=== PATIENT | male | born 1925 | race Caucasian/White ===

== ENCOUNTER 2016-08-05 09:36 | Inpatient (IN) | payer MEDICARE, BC ==
[2016-08-05] MEDS ORDERED: SODIUM CHLORIDE 0.9% 1,000 ML IV STA (10:04)
[2016-08-05] MEDS ORDERED: RX INFO: IV CONTRAST WAS GIVEN 1 EACH MISC MISCELLANE PRN (10:05)
--- NOTE | 2016-08-05 10:12 | ED ---
General Adult HPI - General Chief complaint: Fall Stated complaint: Fall-rib pain Time Seen by Provider: 08/05/16 09:53 Source: patient, EMS, RN notes reviewed Mode of arrival: EMS Limitations: no limitations - History of Present Illness Initial comments: Patient is a pleasant 89-year-old male presenting to the emergency department after a syncopal episode yesterday. Patient complains of right-sided flank discomfort. Patient states he was working in the yard and he fell. Patient does not remember the fall. Patient believes she may have been unresponsive for a couple of minutes. Patient was able to get up on his own. Patient has been doing fine since yesterday except for discomfort in the right flank region. Discomfort is mostly there with movement. Discomfort is mild at rest. No dyspnea. No chest pain. No weakness or confusion. Patient did have an episode of speech problems several weeks ago and his doctor thought he could be having some occasional TIAs. Patient has known severe carotid disease and has been determined not to be a candidate at this time for surgery. - Related Data Home Medications Medication Instructions Recorded Confirmed ALPRAZolam [Xanax] 0.25 mg PO Q8HR PRN 09/03/15 08/05/16 Ascorbic Acid [Vitamin C] 500 mg PO DAILY 09/03/15 08/05/16 Cholecalciferol (Vitamin D3) 2,000 unit PO DAILY 09/03/15 08/05/16 [Vitamin D3] Pravastatin Sodium [Pravachol] 40 mg PO HS 09/03/15 08/05/16 Aspirin 162 mg PO HS 08/05/16 08/05/16 Digoxin [Lanoxin] 125 mcg PO DAILY 08/05/16 08/05/16 Ezetimibe [Zetia] 10 mg PO HS 08/05/16 08/05/16 Fluticasone Propionate 2 spray EA NOSTRIL DAILY PRN 08/05/16 08/05/16 Omeprazole [PriLOSEC] 20 mg PO HS PRN 08/05/16 08/05/16 Saw [place] 500 mg PO DAILY 08/05/16 08/05/16 Simethicone [Gas-X] 125 mg PO DAILY PRN 08/05/16 08/05/16 Tamsulosin [Flomax] 0.8 mg PO HS 08/05/16 08/05/16 Allergies Allergy/AdvReac Type Severity Reaction Status Date / Time cephalexin monohydrate Allergy Rash/Hives Verified 08/05/16 10:09 [From Keflex] erythromycin base Allergy Rash/Hives Verified 08/05/16 10:09 Review of Systems ROS Statement: Those systems with pertinent positive or pertinent negative responses have been documented in the HPI. ROS Other: All systems not noted in ROS Statement are negative. Constitutional: Denies: fever Eyes: Denies: eye pain ENT: Denies: ear pain Respiratory: Denies: cough Cardiovascular: Denies: chest pain Endocrine: Denies: fatigue Gastrointestinal: Reports: abdominal pain (Right flank) Genitourinary: Denies: dysuria Musculoskeletal: Denies: back pain, arthralgia Skin: Denies: rash Neurological: Denies: headache, weakness, confusion Past Medical History Past Medical History: Cancer, Hyperlipidemia, Syncope Additional Past Medical History / Comment(s): Prostate cancer History of Any Multi-Drug Resistant Organisms: None Reported Past Surgical History: Hernia Repair Past Psychological History: No Psychological Hx Reported Smoking Status: Current every day smoker Past Alcohol Use History: None Reported Past Drug Use History: None Reported General Exam Limitations: no limitations General appearance: alert, in no apparent distress Head exam: Present: atraumatic Eye exam: Present: normal appearance, PERRL, EOMI. Absent: nystagmus ENT exam: Present: normal oropharynx Neck exam: Present: normal inspection. Absent: tenderness, meningismus Respiratory exam: Present: normal lung sounds bilaterally, other (Right posterior and lateral rib tenderness, lower.) Cardiovascular Exam: Present: regular rate, normal rhythm Expanded Peripheral pulses: 2+: Radial (R), Radial (L), Posterior Tibialis (R), Posterior Tibialis (L) GI/Abdominal exam: Present: soft, tenderness (Mild tenderness right upper abdomen just below the ribs). Absent: distended Extremities exam: Present: normal inspection, full ROM. Absent: tenderness Back exam: Present: tenderness (Mild to moderate tenderness right lower ribs and lateral ribs.) Neurological exam: Present: alert, CN II-XII intact. Absent: motor sensory deficit Expanded Speech: Present: fluid speech Sensory exam: Upper Extremity Light Touch: Normal, Lower Extremity Light Touch: Normal Motor strength exam: RUE: 5, LUE: 5, RLE: 5, LLE: 5 Psychiatric exam: Present: normal affect, normal mood Skin exam: Present: normal color Course Vital Signs 08/05/16 08/05/16 08/05/16 09:37 10:43 11:00 Temperature 97.3 F L Pulse Rate 61 54 L 100 Respiratory 18 Rate Blood Pressure 146/73 143/68 142/70 O2 Sat by Pulse 95 Oximetry 08/05/16 12:00 Temperature Pulse Rate 72 Respiratory 18 Rate Blood Pressure 118/64 O2 Sat by Pulse 92 L Oximetry EKG Findings - EKG Comments: EKG Findings:: Sinus rate cardia 57. SC 186. QRS 76. QT 392. QTC 381. Normal axis. Normal QRS. Nonspecific T waves. Medical Decision Making - Medical Decision Making Patient reevaluated. Patient and family updated. Case discussed with Dr. Sanchez, who will admit for Dr. Garcia. - Lab Data Result diagrams: 08/05/16 09:54 08/05/16 09:54 Lab Results 08/05/16 08/05/16 08/05/16 Range/Units 09:54 09:54 09:54 WBC 6.1 (3.8-10.6) k/uL RBC 4.76 (4.30-5.90) m/uL Hgb 13.6 (13.0-17.5) gm/dL Hct 41.1 (39.0-53.0) % MCV 86.3 (80.0-100.0) fL MCH 28.5 (25.0-35.0) pg MCHC 33.0 (31.0-37.0) g/dL RDW 14.2 (11.5-15.5) % Plt Count 236 (150-450) k/uL Neutrophils % 69 % Lymphocytes % 20 % Monocytes % 7 % Eosinophils % 2 % Basophils % 0 % Neutrophils # 4.2 (1.3-7.7) k/uL Lymphocytes # 1.2 (1.0-4.8) k/uL Monocytes # 0.4 (0-1.0) k/uL Eosinophils # 0.1 (0-0.7) k/uL Basophils # 0.0 (0-0.2) k/uL PT (9.0-12.0) sec INR (<1.1) APTT (22.0-30.0) sec Sodium 138 (137-145) mmol/L Potassium 4.9 (3.5-5.1) mmol/L Chloride 101 (98-107) mmol/L Carbon Dioxide 26 (22-30) mmol/L Anion Gap 11 mmol/L BUN 14 (9-20) mg/dL Creatinine 0.62 L (0.66-1.25) mg/dL Est GFR (MDRD) Af Amer >60 (>60 ml/min/1.73 sqM) Est GFR (MDRD) Non-Af >60 (>60 ml/min/1.73 sqM) Glucose 101 H (74-99) mg/dL Calcium 9.6 (8.4-10.2) mg/dL Total Bilirubin 1.2 (0.2-1.3) mg/dL AST 29 (17-59) U/L ALT 25 (21-72) U/L Alkaline Phosphatase 102 (38-126) U/L Total Creatine Kinase 44 L (55-170) U/L CK-MB (CK-2) 0.7 (0.0-2.4) ng/mL CK-MB (CK-2) Rel Index 1.6 Troponin I <0.012 (0.000-0.034) ng/mL Total Protein 7.8 (6.3-8.2) g/dL Albumin 4.4 (3.5-5.0) g/dL Urine Color Urine Appearance (Clear) Urine pH (5.0-8.0) Ur Specific [employer] (1.001-1.035) Urine Protein (Negative) Urine Glucose (UA) (Negative) Urine Ketones (Negative) Urine Blood (Negative) Urine Nitrite (Negative) Urine Bilirubin (Negative) Urine Urobilinogen (<2.0) mg/dL Ur Leukocyte Esterase (Negative) Urine RBC (0-5) /hpf Urine WBC (0-5) /hpf Urine Bacteria (None) /hpf Urine Yeast (Budding) (None) /hpf 08/05/16 08/05/16 Range/Units 09:54 10:45 WBC (3.8-10.6) k/uL RBC (4.30-5.90) m/uL Hgb (13.0-17.5) gm/dL Hct (39.0-53.0) % MCV (80.0-100.0) fL MCH (25.0-35.0) pg MCHC (31.0-37.0) g/dL RDW (11.5-15.5) % Plt Count (150-450) k/uL Neutrophils % % Lymphocytes % % Monocytes % % Eosinophils % % Basophils % % Neutrophils # (1.3-7.7) k/uL Lymphocytes # (1.0-4.8) k/uL Monocytes # (0-1.0) k/uL Eosinophils # (0-0.7) k/uL Basophils # (0-0.2) k/uL PT 10.1 (9.0-12.0) sec INR 1.0 (<1.1) APTT 23.3 (22.0-30.0) sec Sodium (137-145) mmol/L Potassium (3.5-5.1) mmol/L Chloride (98-107) mmol/L Carbon Dioxide (22-30) mmol/L Anion Gap mmol/L BUN (9-20) mg/dL Creatinine (0.66-1.25) mg/dL Est GFR (MDRD) Af Amer (>60 ml/min/1.73 sqM) Est GFR (MDRD) Non-Af (>60 ml/min/1.73 sqM) Glucose (74-99) mg/dL Calcium (8.4-10.2) mg/dL Total Bilirubin (0.2-1.3) mg/dL AST (17-59) U/L ALT (21-72) U/L Alkaline Phosphatase (38-126) U/L Total Creatine Kinase (55-170) U/L CK-MB (CK-2) (0.0-2.4) ng/mL CK-MB (CK-2) Rel Index Troponin I (0.000-0.034) ng/mL Total Protein (6.3-8.2) g/dL Albumin (3.5-5.0) g/dL Urine Color Light Yellow Urine Appearance Cloudy (Clear) Urine pH 7.0 (5.0-8.0) Ur Specific [employer] 1.006 (1.001-1.035) Urine Protein Negative (Negative) Urine Glucose (UA) Negative (Negative) Urine Ketones Negative (Negative) Urine Blood Negative (Negative) Urine Nitrite Negative (Negative) Urine Bilirubin Negative (Negative) Urine Urobilinogen <2.0 (<2.0) mg/dL Ur Leukocyte Esterase Large H (Negative) Urine RBC 1 (0-5) /hpf Urine WBC 169 H (0-5) /hpf Urine Bacteria Rare H (None) /hpf Urine Yeast (Budding) Few H (None) /hpf - Radiology Data Radiology results: report reviewed (Computed tomography scan of the brain reveals no acute process. Computed tomography scan of the chest, abdomen, and pelvis: Distended cecum, nonobstructive. Ileus. 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 Vertebral compression deformities, likely chronic.) Disposition Clinical Impression: Syncope, Urinary tract infection Disposition: ADMITTED IP TO THIS HOSP Referrals: Eileen Garcia DO [Primary Care Provider] - 1-2 days
[2016-08-05 10:16] LABS: Basophils % (A) 0 %; CH 28.6; CHCM 33.3; Eosinophils # (A) 0.1 k/uL (0-0.7); Eosinophils % (A) 2 %; HCT 41.1 % (39.0-53.0); HDW 2.35; HGB 13.6 gm/dL (13.0-17.5); Luc # (Auto) 0.13; Luc % (Auto) 2; Lymphocytes # (A) 1.2 k/uL (1.0-4.8); Lymphocytes % (A) 20 %; MCH 28.5 pg (25.0-35.0); MCV 86.3 fL (80.0-100.0); Mean Platelet Volume 7.5; Monocytes # (A) 0.4 k/uL (0-1.0); Monocytes % (A) 7 %; Neutrophils # (A) 4.2 k/uL (1.3-7.7); Neutrophils % (A) 69 %; RBC 4.76 m/uL (4.30-5.90); RDW 14.2 % (11.5-15.5); WBC 6.1 k/uL (3.8-10.6); WBC (Perox) 5.83
[2016-08-05 10:25] LABS: Partial Thromboplastin Time 23.3 sec (22.0-30.0); Prothrombin Time 10.1 sec (9.0-12.0)
[2016-08-05 10:30] LABS: ALT 25 U/L (21-72); AST 29 U/L (17-59); Alkaline Phosphatase 102 U/L (38-126); Anion Gap 11 mmol/L; Blood Urea Nitrogen 14 mg/dL (9-20); Calcium 9.6 mg/dL (8.4-10.2); Carbon Dioxide 26 mmol/L (22-30); Chloride 101 mmol/L (98-107); Glucose 101 mg/dL (74-99); Non-African American GFR(MDRD) >60 (>60 ml/min/1.73 sqM); Potassium 4.9 mmol/L (3.5-5.1); Sodium 138 mmol/L (137-145); Total Bilirubin 1.2 mg/dL (0.2-1.3); Total Protein 7.8 g/dL (6.3-8.2)
[2016-08-05 10:36] LABS: Creatine Kinase 44 U/L (55-170)
[2016-08-05 10:50] LABS: Creatine Kinase MB 0.7 ng/mL (0.0-2.4); Troponin I <0.012 ng/mL (0.000-0.034)
[2016-08-05 11:02] LABS: Appearance,Urine Cloudy (Clear); Bacteria,Urine Rare /hpf; Bilirubin,Urine Negative (Negative); Glucose,Urine (UA) Negative (Negative); Ketones,Urine Negative (Negative); Leukocyte Esterase,Urine Large (Negative); Nitrite,Urine Negative (Negative); Particle Count 5897; Protein,Urine Negative (Negative); RBC,Urine 1 /hpf (0-5); Specific Gravity,Urine 1.006 (1.001-1.035); UA Billing (MACRO vs. MICRO) MICRO; Urobilinogen,Urine <2.0 mg/dL (<2.0); WBC,Urine 169 /hpf (0-5)
--- NOTE | 2016-08-05 11:46 | CT ---
EXAMINATION TYPE: CT brain wo con DATE OF EXAM: 08/05/2016 11:37 AM COMPARISON: 09/03/2015 HISTORY: 89-year-old male syncope TECHNIQUE: Examination was done in axial plane without intravenous contrast. Coronal and sagittal r econstructions performed. CT DLP: 2264.20 mGycm Automated exposure control for dose reduction was used. FINDINGS: There is no evidence of acute intracranial hemorrhage, acute ischemic changes, mass, mass-effect, or extra-axial fluid collection. There is no effacement of cerebral sulci or basal subarachnoid cister ns. There is no midline shift. Hudson-white matter distinction is preserved. Moderate generalized supratentorial volume loss with moderate patchy and confluent white matter hypod ensities. There is secondary mild ventricular enlargement. Leftward nasal septal deviation. Globes appear symmetric and intact. Mastoid air cells and paranasal sinuses well pneumatized. IMPRESSION: No acute intracranial abnormality seen. Stable moderate atrophy and confluent changes of chronic smal l vessel ischemic disease.
--- NOTE | 2016-08-05 12:26 | CT ---
EXAMINATION TYPE: CT ChestAbdPelvis w con DATE OF EXAM: 08/05/2016 11:38 AM COMPARISON: NONE HISTORY: 89-year-old male with fall and right side abdominal pain TECHNIQUE: Contiguous axial scanning of the chest, abdomen, and pelvis performed with IV Contrast, pa tient injected with 100 mL of Omnipaque 300. Delayed images through the kidneys were obtained. Manzanares l/sagittal reconstructions performed. CT DLP: 509.5 mGycm Automated exposure control for dose reduction was used. FINDINGS: CHEST: 9 mm hypodense nodule lower pole left thyroid gland. Heart is normal size with trace anterior basilar pericardial fluid. Extensive coronary vessel calcifi cations are present in remarkable for coronary artery disease. Aorta is normal caliber with conventional arch vessel branching anatomy. Large caliber to the main right and left pulmonary arteries at 2.7 cm each suggesting underlying pulm onary arterial hypertension. Scattered nonenlarged mediastinal lymph nodes. Largest measures 1 cm in the precarinal region and is borderline in size. Interstitial scarring at the subpleural regions of the lower lungs. Some scattered calcified granulom as. Moderate centrilobular emphysema. No consolidation, pneumothorax, or pleural effusion. Scattered calcified pleural plaques compatible with prior asbestos exposure. ABDOMEN: Small hiatal hernia. No focal liver lesion. No biliary ductal dilatation. Gallbladder, adrenal glands, left kidney, spleen with hilar splenule, and pancreas show no gross abno rmality. A couple subcentimeter hypodensities right kidney too small for accurate CT characterization , likely cysts. There appears to be a 1 cm retained needle embedded into the left upper quadrant anterior abdominal w all musculature. Second needle is present along the midline anterior abdominal wall. Tiny 1.3 cm epigastric ventral abdominal wall hernia containing omental fat. Moderate overall stool burden without pericolonic inflammatory change. Prominent fluid-filled small b owel loops especially in the left abdomen. The cecum is distended to the upper limits of normal at 9 cm, coronal image 20. Normal appendix visua lized No dilated small bowel, free fluid, or free air. 3.1 cm fusiform aneurysm of the infrarenal abdominal aorta. Borderline ectasia of the common iliac ar teries at 1.5 cm each. No mesenteric or retroperitoneal lymphadenopathy seen. Pelvis: Prominent air located within the rectum no abnormal fluid collection seen in the pelvis. Bones: Degenerative changes of the hips and scattered throughout the spine. There is vertebral compression deformity of L3 which has a chronic appearance and 40% overall height loss. Mild compression deformities of both T12 and L1 also have a relatively chronic appearance without any paravertebral soft tissue abnormality; 15% overall height loss. T7 vertebral compression deformity also shows no paravertebral soft tissue abnormality with overall 5 0% anterior height loss. There appears to be chronic fracture deformity at the distal left clavicle with heterotopic ossificat ion across the coracoclavicular ligaments. Multiple old healed left-sided rib fracture deformities. IMPRESSION: 1. THE CECUM IS DISTENDED TO THE UPPER LIMITS OF NORMAL AT 9 CM. FOLLOW-UP SHOULD BE CONSIDERED. NO V OLVULUS OR OBSTRUCTIVE CHANGES. 2. PROMINENT FLUID-FILLED SMALL BOWEL LOOPS IN THE MID AND LEFT ABDOMEN COULD REPRESENT ENTERITIS OR GENERALIZED ILEUS. 3. COPD WITH PULMONARY ARTERIAL HYPERTENSION. ASBESTOS RELATED PLEURAL DISEASE. 4. A COUPLE 1 CM NEEDLE FRAGMENTS EMBEDDED IN THE ANTERIOR ABDOMINAL WALL. SMALL EPIGASTRIC VENTRAL A BDOMINAL WALL HERNIA CONTAINING FAT. 3. A 3.1 CM AAA. 4. VERTEBRAL COMPRESSION DEFORMITIES OF T7, T12, L1, AND L3 ALL SUSPECTED TO BE CHRONIC GIVEN THE LAC K OF PARAVERTEBRAL SWELLING. CLINICAL CORRELATION RECOMMENDED. ADDITIONAL OLD HEALED LEFT-SIDED RIB F RACTURE DEFORMITIES.
[2016-08-05] MEDS ORDERED: NALOXONE 0.4 MG/ML 1 ML VIAL IV PRN (13:35)
[2016-08-05] MEDS ORDERED: LEVOFLOXACIN 750MG-D5W PMX 750 MG in DEXTROSE/WATER 1 150ML.BAG IVPB STA (13:38)
--- NOTE | 2016-08-05 14:32 | US ---
EXAMINATION TYPE: US carotid duplex BILAT DATE OF EXAM: 08/05/2016 2:10 PM COMPARISON: NONE CLINICAL HISTORY: syncope. EXAM MEASUREMENTS: RIGHT: Peak Systolic Velocity (PSV) cm/sec ----- Right CCA: 93.0 ----- Right ICA: 93.2 ----- Right ECA: 113.5 ICA/CCA ratio: 1.0 RIGHT: End Diastole cm/sec ----- Right CCA: 22.2 ----- Right ICA: 26.0 ----- Right ECA: 12.4 LEFT: Peak Systolic Velocity (PSV) cm/sec ----- Left CCA: 118.2 ----- Left ICA: 94.2 ----- Left ECA: 74.7 ICA/CCA ratio: 0.8 LEFT: End Diastole cm/sec ----- Left CCA: 22.2 ----- Left ICA: 26.0 ----- Left ECA: 6.6 VERTEBRALS (direction of flow): Right Vertebral: Antegrade Left Vertebral: Antegrade No significant stenosis seen, bilateral shadowing plaque at bulbs, no elevated velocities. Plaque is present within the right carotid bifurcation. Intimal thickening is present on the right. T here is a larger smooth plaque within the right carotid bulb. Intimal thickening is present on the le ft. IMPRESSION: Intimal thickening and plaquing present on the right with mild intimal thickening of the left. No significant flow-limiting stenosis is evident. Criteria for Assigning % of Stenosis / Diameter reduction (Estimation based on the indirect measurements of the internal carotid artery velocities (ICA PSV). 1. Normal (no stenosis)=ICA PSV < 125 cm/s: ratio < 2.0: ICA EDV<40 cm/s. 2. Less than 50% stenosis=ICA PSV < 125 cm/s: ratio < 2.0: ICA EDV<40 cm/s. 3. 50 to 69% stenosis=ICA PSV of 125 to 230 cm/s: ration 2.0 ? 4.0: ICA EDV 40-100 cm/s. 4. Greater than 70% stenosis to near occlusion= ICA PSV > 230 cm/s: ratio > 4.0: ICA EDV > 100 cm/s. 5. Near occlusion= ICA PSV velocities may be low or undetectable: variable ratio and ICA EDV. 6. Total occlusion=unable to detect flow.
[2016-08-05] MEDS: SODIUM CHLORIDE 0.9% 1,000 ML IV SCH (15:12)
[2016-08-05] MEDS ORDERED: SIMETHICONE 80 MG CHEWABLE PO PRN (15:45)
[2016-08-05] MEDS ORDERED: PANTOPRAZOLE 40 MG TABLET PO PRN (15:45)
[2016-08-05] MEDS: HYDROcodone/APAP 5-325MG 1 EACH TAB PO PRN (16:35)
[2016-08-05] MEDS: LIDOCAINE 5% PATCH TOPICAL SCH (16:55)
[2016-08-05] MEDS ORDERED: BISACODYL 10 MG SUPP RECTAL STA (18:55)
[2016-08-05] MEDS: DOCUSATE ORAL SOLN 100 MG/10 ML CUP PO SCH (19:31)
[2016-08-05] MEDS: EZETIMIBE 10 MG TAB PO SCH (20:43)
[2016-08-05] MEDS: ASPIRIN 81 MG CHEW PO SCH (20:43)
[2016-08-05] MEDS: SENNOSIDES 8.6 MG TAB PO SCH (20:43)
[2016-08-05] MEDS ORDERED: TAMSULOSIN 0.4 MG CAP.ER.24H PO SCH (21:00)
--- NOTE | 2016-08-05 22:02 | HP ---
REASON FOR ADMISSION: Syncopal episode. HISTORY OF PRESENT ILLNESS: This is an 89-year-old gentleman with a history of fall a few months ago from a ladder, thereafter sustaining multiple vertebral injuries and a subarachnoid hemorrhage, according to the daughter, who is at bedside. Was brought into the hospital after sustaining a syncopal episode. Patient apparently was working on his lawn 24 hours prior to admission. After an hour or so, the patient apparently had a syncopal episode and lost consciousness for a brief period of time. The patient thereafter noted significant pain in his right flank. Today patient comes in the hospital with persistent complaints of pain associated with flexion and extension. The patient denies having any palpitations, chest pain, headaches or change in vision prior to the episode. Patient also denies having any recent illnesses, urinary urgency, frequency, chills or diarrhea. Patient was seen in the emergency room. EKG did not reveal any arrhythmogenic activity. Blood pressure was within normal limits. Reproducibility of symptoms was not noted with patient changing positions. Patient apparently does have some history of carotid disease and intervention was recommended. In the past and was deferred due to his recent health condition. At the time of my evaluation, patient's main complaint was right flank pain. No chest pain, dizziness, nausea, vomiting or diarrhea is reported. REVIEW OF SYSTEMS: Fourteen-point review of systems was done; none pertinent other than those mentioned above. Past medical history includes recent fall with multiple vertebral fractures, subarachnoid hemorrhage, carotid disease, prostate cancer, dyslipidemia, hernia repair, lone atrial fibrillation in the postoperative period. SOCIAL HISTORY: Currently lives alone. Smokes about 1/2 pack of cigarettes daily. Denies any significant alcohol use. ALLERGIES INCLUDE CEFALXIN, ERYTHROMYCIN. MEDICATIONS INCLUDE: 1. Xanax. 2. Vitamin C. 3. Vitamin D3. 4. Pravachol. 5. Lanoxin. 6. Zetia. 7. Fluticasone. 8. Prilosec. 9. Flomax. 10. Simethicone. 11. Saw [place]. Those were reviewed and appropriately reconciled. PHYSICAL EXAMINATION: VITALS: Temperature 97.3, heart rate 61, respiratory rate 18, blood pressure 146/73, saturating 95% on room air. GENERAL APPEARANCE: Alert, oriented x3. No distress. HEAD: Atraumatic, normocephalic. Pupils are equal, round and reactive to light and accommodation. Extraocular movements are intact. NECK: Supple. No JVD. LUNGS: Diminished breath sounds. No wheezing or rhonchi. HEART: S1, S2 heard. No significant murmurs appreciated. Regular rate and rhythm. ABDOMEN: Soft. There is some tenderness to palpation of the abdominal wall on the right flank, which is exacerbated with movement around the hip. Lumbar spine tenderness is also appreciated. LOWER EXTREMITIES: Muscle strength is 5 out of 5. No reproducibility of symptoms with flexion or extension. NEURO: No focal motor or sensory deficits noted. LABORATORY DATA: Hemoglobin 13.6, hematocrit 41.1, white count 6.1, platelets of 236. Sodium 138, potassium 4.9, chloride 101, bicarb 26, BUN 14, creatinine 0.62. At UA, there is a significant amount of WBC and leukocyte esterase. RADIOLOGY: CT scan of the abdomen was done, was noted to show vertebral compression fracture and a cecal dilatation continuous with COPD. ASSESSMENT AND PLAN: 1. Syncope. This likely is a vasovagal episode, as patient apparently has been having some symptoms with abrupt change in movement as well. 2. Asymptomatic bacteriuria. 3. Recent fall with multiple vertebral compression fractures. 4. Constipation. 5. Right flank pain. This is likely an anterior abdominal wall muscle injury. 6. Chronic obstructive pulmonary disease. 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 PLAN: Home medications are continued. They will obtain a digoxin level to rule out any neurologic symptoms attributing to this; however, this is not usually the common presentation. Carotid studies are done. Echocardiogram will be obtained. Will discontinue the neurology consultation. I do not believe this is a central event. Patient will undergo orthostatics. If orthostatics are negative, will continue telemetry monitoring for at least 24 hours and thereafter will advise the patient compression stockings with any kind of activity at this time. Pain control will be initiated. A bowel regimen will also be initiated. A repeat abdominal x-ray will be done tomorrow as well. I did discuss this with the patient and the family. Upon 24 hours if there is no recurrence or arrhythmogenic activity on telemetry, patient will be discharged home with compression socks. CT scan of the head did not reveal any acute abnormalities.
[2016-08-06] MEDS: LIDOCAINE 5% PATCH TOPICAL SCH (09:01)
[2016-08-06] MEDS: HYDROcodone/APAP 5-325MG 1 EACH TAB PO PRN (09:04)
[2016-08-06] MEDS: DOCUSATE ORAL SOLN 100 MG/10 ML CUP PO SCH (09:05)
[2016-08-06] MEDS: SENNOSIDES 8.6 MG TAB PO SCH ×2 (09:05→20:20)
[2016-08-06 09:41] LABS: Basophils % (A) 1 %; CH 28.5; CHCM 32.7; Eosinophils # (A) 0.1 k/uL (0-0.7); Eosinophils % (A) 1 %; HCT 42.1 % (39.0-53.0); HDW 2.34; HGB 13.4 gm/dL (13.0-17.5); Luc # (Auto) 0.09; Luc % (Auto) 1; Lymphocytes # (A) 0.9 k/uL (1.0-4.8); Lymphocytes % (A) 13 %; MCH 27.9 pg (25.0-35.0); MCHC 31.8 g/dL (31.0-37.0); MCV 87.8 fL (80.0-100.0); Mean Platelet Volume 7.7; Monocytes # (A) 0.4 k/uL (0-1.0); Monocytes % (A) 6 %; Neutrophils # (A) 5.6 k/uL (1.3-7.7); Neutrophils % (A) 79 %; RBC 4.79 m/uL (4.30-5.90); RDW 14.1 % (11.5-15.5); WBC 7.1 k/uL (3.8-10.6); WBC (Perox) 7.15
--- NOTE | 2016-08-06 09:57 | ECHOF ---
Referral Reason:syncope MEASUREMENTS -------- HEIGHT: 177.8 cm WEIGHT: 59.0 kg BP: 127/70 RVIDd: 3.3 cm (< 3.3) IVSd: 1.3 cm (0.6 - 1.1) LVIDd: 3.8 cm (3.9 - 5.3) LVPWd: 1.3 cm (0.6 - 1.1) IVSs: 1.7 cm LVIDs: 2.7 cm LVPWs: 1.7 cm LA Diam: 3.1 cm (2.7 - 3.8) LAESV Index (A-L): 27.02 ml/m Ao Diam: 3.6 cm (2.0 - 3.7) AV Cusp: 2.4 cm (1.5 - 2.6) MV EXCURSION: 11.800 mm (> 18.000) MV EF SLOPE: 29 mm/s (70 - 150) EPSS: 1.2 cm MV E Wes: 0.68 m/s MV DecT: 300 ms MV A Wes: 0.74 m/s MV E/A Ratio: 0.92 RAP: 5.00 mmHg RVSP: 27.32 mmHg FINDINGS -------- Sinus rhythm. This was a technically good study. The left ventricular size is normal. There is mild concentric left ventricular hypertrophy. Overall left ventricular systolic function is normal with, an EF between 55 - 60 %. The right ventricle is mildly enlarged. Normal LA size by volume 22+/-6 ml/m2. The right atrium is normal in size. The aortic valve is trileaflet and appears structurally normal. The mitral valve leaflets are mildly thickened. Mild mitral annular calcification present. There is trace mitral regurgitation. Mild tricuspid regurgitation present. Right ventricular systolic pressure is normal at < 35 mmHg. Trace/mild (physiologic) pulmonic regurgitation. The aortic root, ascending aorta and aortic arch are normal. Normal inferior vena cava with normal inspiratory collapse consistent with estimated right atrial pressure of 5 mmHg. The pericardium is normal. CONCLUSIONS -------- 1. Sinus rhythm. 2. Mild mitral annular calcification present. 3. There is trace mitral regurgitation. 4. Mild tricuspid regurgitation present. 5. Right ventricular systolic pressure is normal at < 35 mmHg. 6. Trace/mild (physiologic) pulmonic regurgitation. 7. The aortic root, ascending aorta and aortic arch are normal. 8. Normal inferior vena cava with normal inspiratory collapse consistent with estimated right atrial pressure of 5 mmHg. 9. The pericardium is normal. 10. This was a technically good study. 11. The left ventricular size is normal. 12. There is mild concentric left ventricular hypertrophy. 13. Overall left ventricular systolic function is normal with, an EF between 55 - 60 %. 14. The right ventricle is mildly enlarged. 15. Normal LA size by volume 22+/-6 ml/m2. 16. The aortic valve is trileaflet and appears structurally normal. 17. The mitral valve leaflets are mildly thickened. LYRIC WRITER: Cady Camilo RDCS
[2016-08-06 10:14] LABS: ALT 21 U/L (21-72); AST 28 U/L (17-59); Alkaline Phosphatase 97 U/L (38-126); Anion Gap 10 mmol/L; Blood Urea Nitrogen 10 mg/dL (9-20); Calcium 9.4 mg/dL (8.4-10.2); Carbon Dioxide 26 mmol/L (22-30); Chloride 101 mmol/L (98-107); Glucose 97 mg/dL (74-99); Non-African American GFR(MDRD) >60 (>60 ml/min/1.73 sqM); Potassium 4.4 mmol/L (3.5-5.1); Sodium 137 mmol/L (137-145); Total Bilirubin 1.1 mg/dL (0.2-1.3); Total Protein 7.3 g/dL (6.3-8.2)
[2016-08-06] MEDS ORDERED: HYDROcodone/APAP 5-325MG 1 EACH TAB PO PRN ×2 (12:26→18:44)
--- NOTE | 2016-08-06 13:53 | XR ---
EXAMINATION TYPE: XR abdomen 2V DATE OF EXAM: 08/06/2016 1:37 PM CLINICAL DATA: 89-year-old male with constipation, PH[facility] COMPARISON: None FINDINGS: Reticular opacities at both lower lungs. No evidence for free intraperitoneal air. Gassy small and large bowel with extensive stool noted within the right hemicolon. No air-fluid level seen. Multiple sheets and external artifacts project over the abdomen. A couple linear densities project over the mid and left abdomen, suspected metal stays such as relati ng to prior gastrostomy tube placement. IMPRESSION: 1. Some reticular densities at both lung bases. There is underlying emphysema but superimposed infilt rate is not excluded. Clinically correlate. 2. No evidence for free air. 3. Gaseous distention of small and large bowel with large amount of stool in the right hemicolon.
[2016-08-06] MEDS ORDERED: ONDANSETRON 4 MG/2 ML VIAL IVP PRN (14:01)
[2016-08-06] MEDS ORDERED: MAG HYDROX/AL HYDROX/SIMETH 30 ML CUP PO PRN (14:01)
[2016-08-06] MEDS ORDERED: SODIUM CHLORIDE 0.9% 500 ML IV ONE (14:05)
[2016-08-06] MEDS: SODIUM CHLORIDE 0.9% 1,000 ML IV SCH ×3 (14:26→23:25)
[2016-08-06] MEDS: KETOROLAC 30 MG/ML 1 ML VIAL IVP SCH ×3 (14:27→23:10)
[2016-08-06] MEDS: FAMOTIDINE 20 MG/2 ML VIAL IV SCH ×2 (14:28→20:20)
[2016-08-06] MEDS ORDERED: LEVOFLOXACIN 750MG-D5W PMX 750 MG in DEXTROSE/WATER 1 150ML.BAG IVPB SCH (15:00)
[2016-08-06] MEDS ORDERED: NICOTINE 21MG/24HR PATCH TRANSDERM STA (15:27)
--- NOTE | 2016-08-06 15:38 | P.PN ---
Subjective HISTORY OF PRESENT ILLNESS: This is an 89-year-old gentleman with a history of fall a few months ago from a ladder, thereafter sustaining multiple vertebral injuries and a subarachnoid hemorrhage, according to the daughter, who is at bedside. Was brought into the hospital after sustaining a syncopal episode. Patient apparently was working on his lawn 24 hours prior to admission. After an hour or so, the patient apparently had a syncopal episode and lost consciousness for a brief period of time. The patient thereafter noted significant pain in his right flank. Today patient comes in the hospital with persistent complaints of pain associated with flexion and extension. The patient denies having any palpitations, chest pain, headaches or change in vision prior to the episode. Patient also denies having any recent illnesses, urinary urgency, frequency, chills or diarrhea. Patient was seen in the emergency room. EKG did not reveal any arrhythmogenic activity. Blood pressure was within normal limits. Reproducibility of symptoms was not noted with patient changing positions. Patient apparently does have some history of carotid disease and intervention was recommended. In the past and was deferred due to his recent health condition. At the time of my evaluation, patient's main complaint was right flank pain. No chest pain, dizziness, nausea, vomiting or diarrhea is reported. 08/06/2016 States to have pain that is slightly improved on the right abdominal wall the flank. Orthostatics were positive overnight States to have some dizziness with movement REVIEW OF SYSTEMS: Fourteen-point review of systems was done; none pertinent other than those mentioned above. Objective - Vital Signs Vital signs: Vital Signs Temp 97.5 F L 08/06/16 07:40 Pulse 63 08/06/16 07:40 Resp 18 08/06/16 07:40 BP 129/78 08/06/16 08:00 Pulse Ox 93 L 08/06/16 07:40 Intake & Output 08/05/16 08/06/16 08/06/16 18:59 06:59 18:59 Intake Total 120 Output Total 800 450 Balance -800 -330 Weight 58.967 kg Intake: Oral 120 Output: Urine 800 450 Other: # Voids 3 3 2 - Exam Physical exam Gen. appearance oriented 3 in no distress Neck is supple no JVD Lungs good air entry clear to auscultation no rhonchi or wheezing Heart S1-S2 heard regular rate and rhythm no murmurs appreciated Abdomen soft there is reproducible pain on the anterior abdominal wall onto the right flank region worse with movement Neurologically cranial nerves II-12 grossly intact no focal motor or sensory deficits noted Skin no abnormalities appreciated - Labs CBC & Chem 7: 08/06/16 08:32 08/06/16 08:32 Labs: Abnormal Lab Results - Last 24 Hours (Table) 08/06/16 08/06/16 Range/Units 08:32 08:32 Lymphocytes # 0.9 L (1.0-4.8) k/uL Creatinine 0.64 L (0.66-1.25) mg/dL Assessment and Plan Plan: ASSESSMENT AND PLAN: 1. Syncope. This likely is a vasovagal episode, as patient apparently has been having some symptoms with abrupt change in movement as well. 2. Asymptomatic bacteriuria. 3. Recent fall with multiple vertebral compression fractures. 4. Constipation. 5. Right flank pain. This is likely an anterior abdominal wall muscle injury. 6. Chronic obstructive pulmonary disease. 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 Plan Continue repeating labs. We'll repeat orthostatics till they're negative continue with IV fluids. A 500 mL fluid bolus will be given over 2 hours Add Toradol 15 mg every 6 hours Voltaren cream will also be added PT OT consultation This was discussed with the patient and family A Dulcolax suppository will be given.
[2016-08-06] MEDS ORDERED: NA PHOS,M-B/NA PHOS,DI-BA 133 ML ENEMA RECTAL ONE (15:42)
[2016-08-06] MEDS: DICLOFENAC SODIUM GEL 100 GM TUBE TOPICAL SCH ×2 (17:35→22:14)
[2016-08-06] MEDS ORDERED: BISACODYL 10 MG SUPP RECTAL PRN (18:00)
[2016-08-06] MEDS: ASPIRIN 81 MG CHEW PO SCH (20:20)
[2016-08-06] MEDS: TAMSULOSIN 0.4 MG CAP.ER.24H PO SCH (20:20)
[2016-08-06] MEDS: EZETIMIBE 10 MG TAB PO SCH (20:20)
[2016-08-07] MEDS: KETOROLAC 30 MG/ML 1 ML VIAL IVP SCH ×3 (05:25→17:06)
[2016-08-07] MEDS: DICLOFENAC SODIUM GEL 100 GM TUBE TOPICAL SCH ×4 (08:45→20:54)
[2016-08-07] MEDS: NICOTINE 21MG/24HR PATCH TRANSDERM SCH (08:47)
[2016-08-07] MEDS: LIDOCAINE 5% PATCH TOPICAL SCH (08:48)
[2016-08-07] MEDS: SENNOSIDES 8.6 MG TAB PO SCH ×2 (08:49→20:53)
[2016-08-07] MEDS: FAMOTIDINE 20 MG/2 ML VIAL IV SCH ×2 (08:49→20:53)
[2016-08-07] MEDS: DOCUSATE ORAL SOLN 100 MG/10 ML CUP PO SCH (08:49)
[2016-08-07] MEDS: TAMSULOSIN 0.4 MG CAP.ER.24H PO SCH ×2 (08:50→20:53)
[2016-08-07 09:58] LABS: ALT 16 U/L (21-72); AST 25 U/L (17-59); Alkaline Phosphatase 70 U/L (38-126); Anion Gap 9 mmol/L; Blood Urea Nitrogen 16 mg/dL (9-20); Calcium 8.7 mg/dL (8.4-10.2); Carbon Dioxide 23 mmol/L (22-30); Chloride 103 mmol/L (98-107); Glucose 125 mg/dL (74-99); Non-African American GFR(MDRD) >60 (>60 ml/min/1.73 sqM); Potassium 3.8 mmol/L (3.5-5.1); Sodium 135 mmol/L (137-145); Total Bilirubin 1.5 mg/dL (0.2-1.3)
[2016-08-07 10:23] LABS: Basophils % (A) 0 %; CH 28.5; CHCM 33.1; Eosinophils % (A) 1 %; HCT 35.1 % (39.0-53.0); HGB 11.5 gm/dL (13.0-17.5); Luc # (Auto) 0.07; Luc % (Auto) 1; Lymphocytes # (A) 0.6 k/uL (1.0-4.8); Lymphocytes % (A) 9 %; MCH 28.3 pg (25.0-35.0); MCHC 32.6 g/dL (31.0-37.0); MCV 86.7 fL (80.0-100.0); Mean Platelet Volume 7.9; Monocytes # (A) 0.4 k/uL (0-1.0); Monocytes % (A) 7 %; Neutrophils # (A) 5.3 k/uL (1.3-7.7); Neutrophils % (A) 82 %; RBC 4.05 m/uL (4.30-5.90); RDW 14.1 % (11.5-15.5); WBC 6.5 k/uL (3.8-10.6); WBC (Perox) 6.54
--- NOTE | 2016-08-07 19:13 | P.PN ---
Subjective HISTORY OF PRESENT ILLNESS: This is an 89-year-old gentleman with a history of fall a few months ago from a ladder, thereafter sustaining multiple vertebral injuries and a subarachnoid hemorrhage, according to the daughter, who is at bedside. Was brought into the hospital after sustaining a syncopal episode. Patient apparently was working on his lawn 24 hours prior to admission. After an hour or so, the patient apparently had a syncopal episode and lost consciousness for a brief period of time. The patient thereafter noted significant pain in his right flank. Today patient comes in the hospital with persistent complaints of pain associated with flexion and extension. The patient denies having any palpitations, chest pain, headaches or change in vision prior to the episode. Patient also denies having any recent illnesses, urinary urgency, frequency, chills or diarrhea. Patient was seen in the emergency room. EKG did not reveal any arrhythmogenic activity. Blood pressure was within normal limits. Reproducibility of symptoms was not noted with patient changing positions. Patient apparently does have some history of carotid disease and intervention was recommended. In the past and was deferred due to his recent health condition. At the time of my evaluation, patient's main complaint was right flank pain. No chest pain, dizziness, nausea, vomiting or diarrhea is reported. 08/06/2016 States to have pain that is slightly improved on the right abdominal wall the flank. Orthostatics were positive overnight States to have some dizziness with movement REVIEW OF SYSTEMS: Fourteen-point review of systems was done; none pertinent other than those mentioned above. 08/07/16 doing well overnight had agitation appears to be excited and hypertalkative was able to ambulate with a walker orthostatics negative pain is better controlled Objective - Vital Signs Vital signs: Vital Signs Temp 96.8 F L 08/07/16 15:00 Pulse 69 08/07/16 15:00 Resp 16 08/07/16 15:00 BP 97/53 08/07/16 15:00 Pulse Ox 92 L 08/07/16 15:00 Intake & Output 08/07/16 08/07/16 08/08/16 06:59 18:59 06:59 Intake Total 600 Output Total 350 Balance -350 600 Intake: IV 600 Sodium Chloride 0.9% 1, 600 000 ml @ 75 mls/hr IV . [id number] [facility] Rx#:[id number] Output: Urine 350 Other: Voiding Method Urinal # Voids 2 # Bowel Movements 1 1 - Exam Physical exam Gen. appearance oriented 3 in no distress Neck is supple no JVD Lungs good air entry clear to auscultation no rhonchi or wheezing Heart S1-S2 heard regular rate and rhythm no murmurs appreciated Abdomen soft tenderness in the right flank is improved Neurologically cranial nerves II-12 grossly intact no focal motor or sensory deficits noted Skin no abnormalities appreciated - Labs CBC & Chem 7: 08/07/16 09:27 08/07/16 09:27 Labs: Abnormal Lab Results - Last 24 Hours (Table) 08/07/16 08/07/16 Range/Units 09:27 09:27 RBC 4.05 L (4.30-5.90) m/uL Hgb 11.5 L (13.0-17.5) gm/dL Hct 35.1 L (39.0-53.0) % Lymphocytes # 0.6 L (1.0-4.8) k/uL Sodium 135 L (137-145) mmol/L Glucose 125 H (74-99) mg/dL Total Bilirubin 1.5 H (0.2-1.3) mg/dL ALT 16 L (21-72) U/L Total Protein 6.0 L (6.3-8.2) g/dL Albumin 3.2 L (3.5-5.0) g/dL Assessment and Plan Plan: ASSESSMENT AND PLAN: 1. Syncope. This likely is a vasovagal episode, as patient apparently has been having some symptoms with abrupt change in movement as well. 2. Asymptomatic bacteriuria. 3. Recent fall with multiple vertebral compression fractures. 4. Constipation. 5. Right flank pain. This is likely an anterior abdominal wall muscle injury. 6. Chronic obstructive pulmonary disease. 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 Plan improved encourage ambulation Acute delirium , dc norco had a bm today juancarlos last Toradol 15 mg every 6 hours Voltaren cream will also be added PT OT consultation This was discussed with the patient and family
[2016-08-07] MEDS: EZETIMIBE 10 MG TAB PO SCH (20:53)
[2016-08-07] MEDS: ASPIRIN 81 MG CHEW PO SCH (20:53)
[2016-08-07] MEDS: SODIUM CHLORIDE 0.9% 1,000 ML IV SCH (22:52)
[2016-08-08] MEDS: KETOROLAC 30 MG/ML 1 ML VIAL IVP SCH ×4 (00:42→11:19)
[2016-08-08 08:04] VITALS: BP 133/70; PULSE 60; RESP 14; TEMP 96.7
[2016-08-08] MEDS: DICLOFENAC SODIUM GEL 100 GM TUBE TOPICAL SCH ×2 (08:04→12:36)
[2016-08-08] MEDS: FAMOTIDINE 20 MG/2 ML VIAL IV SCH (08:05)
[2016-08-08] MEDS: LIDOCAINE 5% PATCH TOPICAL SCH (08:05)
[2016-08-08] MEDS: SENNOSIDES 8.6 MG TAB PO SCH (08:06)
[2016-08-08] MEDS: TAMSULOSIN 0.4 MG CAP.ER.24H PO SCH (08:06)
[2016-08-08] MEDS: NICOTINE 21MG/24HR PATCH TRANSDERM SCH (08:06)
[2016-08-08] MEDS: SODIUM CHLORIDE 0.9% 1,000 ML IV SCH (08:51)
[2016-08-08] MEDS ORDERED: DOCUSATE 100 MG CAP PO SCH (09:00)
[2016-08-08 11:20] VITALS: BMI 18.6
--- NOTE | 2016-08-08 18:06 | P.DS ---
Providers Date of admission: 08/05/16 13:35 Attending physician: Sol Sanchez Consults: 08/05/16 13:36 Consult Physician Urgent Consulting Provider: Kishore Lindsay Consult Reason/Comments: syncope Do you want consulting provider notified?: Yes Primary care physician: Eileen Murrietaarlo [facility] Course: HISTORY OF PRESENT ILLNESS: This is an 89-year-old gentleman with a history of fall a few months ago from a ladder, thereafter sustaining multiple vertebral injuries and a subarachnoid hemorrhage, according to the daughter, who is at bedside. Was brought into the hospital after sustaining a syncopal episode. Patient apparently was working on his lawn 24 hours prior to admission. After an hour or so, the patient apparently had a syncopal episode and lost consciousness for a brief period of time. The patient thereafter noted significant pain in his right flank. Today patient comes in the hospital with persistent complaints of pain associated with flexion and extension. The patient denies having any palpitations, chest pain, headaches or change in vision prior to the episode. Patient also denies having any recent illnesses, urinary urgency, frequency, chills or diarrhea. Patient was seen in the emergency room. EKG did not reveal any arrhythmogenic activity. Blood pressure was within normal limits. Reproducibility of symptoms was not noted with patient changing positions. Patient apparently does have some history of carotid disease and intervention was recommended. In the past and was deferred due to his recent health condition. At the time of my evaluation, patient's main complaint was right flank pain. No chest pain, dizziness, nausea, vomiting or diarrhea is reported. 08/06/2016 States to have pain that is slightly improved on the right abdominal wall the flank. Orthostatics were positive overnight States to have some dizziness with movement REVIEW OF SYSTEMS: Fourteen-point review of systems was done; none pertinent other than those mentioned above. 08/07/16 doing well overnight had agitation appears to be excited and hypertalkative was able to ambulate with a walker orthostatics negative pain is better controlled Objective - Vital Signs Vital signs: Vital Signs Temp 96.8 F L 08/07/16 15:00 Pulse 69 08/07/16 15:00 Resp 16 08/07/16 15:00 BP 97/53 08/07/16 15:00 Pulse Ox 92 L 08/07/16 15:00 Intake & Output 08/07/16 08/07/16 08/08/16 06:59 18:59 06:59 Intake Total 600 Output Total 350 Balance -350 600 Intake: IV 600 Sodium Chloride 0.9% 1, 600 000 ml @ 75 mls/hr IV . [id number] [facility] Rx#:[id number] Output: Urine 350 Other: Voiding Method Urinal # Voids 2 # Bowel Movements 1 1 - Exam Physical exam Gen. appearance oriented 3 in no distress Neck is supple no JVD Lungs good air entry clear to auscultation no rhonchi or wheezing Heart S1-S2 heard regular rate and rhythm no murmurs appreciated Abdomen soft tenderness in the right flank is improved Neurologically cranial nerves II-12 grossly intact no focal motor or sensory deficits noted Skin no abnormalities appreciated Assessment and Plan Plan: ASSESSMENT AND PLAN: 1. Syncope.vagal in nature, due to orthostatic hypotension has been having some symptoms with abrupt change in movement as well. 2. Asymptomatic bacteriuria. 3. Recent fall with multiple vertebral compression fractures. 4. Constipation. 5. Right flank pain. This is likely an anterior abdominal wall muscle injury. 6. Chronic obstructive pulmonary disease. 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 orthostatics are improved get up and go test was done, was able to ambulate with a walker dc home with home care Plan - Discharge Summary Discharge Medication List ALPRAZolam [Xanax] 0.25 mg PO Q8HR PRN 09/03/15 [History] Ascorbic Acid [Vitamin C] 500 mg PO DAILY 09/03/15 [History] Cholecalciferol (Vitamin D3) [Vitamin D3] 2,000 unit PO DAILY 09/03/15 [History] Pravastatin Sodium [Pravachol] 40 mg PO HS 09/03/15 [History] Aspirin 162 mg PO HS 08/05/16 [History] Digoxin [Lanoxin] 125 mcg PO DAILY 08/05/16 [History] Ezetimibe [Zetia] 10 mg PO HS 08/05/16 [History] Fluticasone Propionate 2 spray EA NOSTRIL DAILY PRN 08/05/16 [History] Omeprazole [PriLOSEC] 20 mg PO HS PRN 08/05/16 [History] Saw [place] 500 mg PO DAILY 08/05/16 [History] Simethicone [Gas-X] 125 mg PO DAILY PRN 08/05/16 [History] Mag Hydrox/Al Hydrox/Simeth [Maalox] 30 ml PO Q4HR PRN dose 08/08/16 [Rx] Sennosides [Senokot] 8.6 mg PO BID tab 08/08/16 [Rx] Tamsulosin [Flomax] 0.4 mg PO BID cap 08/08/16 [Rx] Follow up Appointment(s)/Referral(s): [facility], [NON-STAFF] - Eileen Black DO [Primary Care Provider] - 1-2 days Patient Instructions/Handouts: Urinary Tract Infection in Men (DC) Activity/Diet/Wound Care/Special Instructions: Cardiac diet. Fall precautions. Discharge Disposition: HOME WITH HOME HEALTH SERVICES
== END 2016-08-08 14:40 | disposition home health service (06) | DRG 312 ==
LOC: EC 09:36 → 4MS4W 13:35
PROVIDERS: ADMIT Internal Medicine; ATTEND Internal Medicine
DX: I95.1 Orthostatic hypotension (principal); J44.9 Chronic obstructive pulmonary disease, unspecified; I48.91 Unspecified atrial fibrillation; I77.89 Other specified disorders of arteries and arterioles; E78.5 Hyperlipidemia, unspecified; F17.210 Nicotine dependence, cigarettes, uncomplicated; R82.71 Bacteriuria; K59.00 Constipation, unspecified; S39.001A Unspecified injury of muscle, fascia and tendon of abdomen, initial encounter; Z79.82 Long term (current) use of aspirin; Z79.899 Other long term (current) drug therapy; Z88.1 Allergy status to other antibiotic agents; Z85.46 Personal history of malignant neoplasm of prostate; X58.XXXA Exposure to other specified factors, initial encounter; Y92.9 Unspecified place or not applicable
CPT/HCPCS: 36415; 70450; 71260; 74020; 74177; 80053; 80162; 81001; 82550; 82553; 84484; 85025; 85610; 85730; 93005; 93306; 93880